=== PATIENT | female | born 1990 | race Caucasian/White ===

== ENCOUNTER 2023-03-03 14:13 | Emergency (ER) | payer OTHER ==
[2023-03-03 15:08] LABS: CORONAVIRUS COVID-19 NAA NEGATIVE (NEGATIVE); INFLUENZA A NAA NEGATIVE (NEGATIVE); INFLUENZA B NAA NEGATIVE (NEGATIVE); RESPIRATORY SYNCYTIAL VIR NAA NEGATIVE (NEGATIVE)
[2023-03-03 15:26] LABS: BASOPHILS ABSOLUTE AUTO 0.03 K/uL (0.00-0.20); BASOPHILS PERCENT AUTO 0.3 % (0.0-2.0); EOSINOPHILS ABSOLUTE AUTO 0.22 K/uL (0.00-0.50); EOSINOPHILS PERCENT AUTO 2.1 % (0.0-5.0); LYMPHOCYTES PERCENT AUTO 20.8 % (10.0-50.0); MEAN CORPUSCULAR HEMOGLOBIN 27.7 pg (28.2-33.3); MEAN CORPUSCULAR HGB CONC 33.3 g/dL (31.7-36.0); MEAN CORPUSCULAR VOLUME 83.2 fL (84.0-98.0); MONOCYTES ABSOLUTE AUTO 0.95 K/uL (0.00-1.00); NEUTROPHILS ABSOLUTE AUTO 7.16 K/uL (1.40-7.00); NEUTROPHILS PERCENT AUTO 67.8 % (45.0-80.0); PLATELET COUNT,PLT 361 K/uL (150-350); RED BLOOD CELL COUNT 4.69 M/uL (3.77-5.09); RED CELL DISTRIBUTION WIDTH 14.2 % (11.2-14.1); WHITE BLOOD CELL COUNT,WBC 10.6 K/uL (4.0-10.2)
[2023-03-03 15:54] LABS: ALANINE AMINOTRANSFERASE,ALT 17 U/L (12-78); ALBUMIN 3.5 g/dL (3.4-5.0); ALKALINE PHOSPHATASE 55 IU/L (46-116); ASPARTATE AMNIOTRANSFERASE,AST 12 U/L (15-37); BILIRUBIN TOTAL 0.8 mg/dL (0.2-1.0); BLOOD UREA NITROGEN,BUN 9 mg/dL (7-18); CALCIUM 8.7 mg/dL (8.5-10.1); CARBON DIOXIDE,CO2 21.4 mmol/L (21.0-32.0); CHLORIDE,CL 108 mmol/L (98-107); CREATININE 0.82 mg/dL (0.51-1.17); GLUCOSE RANDOM 91 mg/dL (70-99); POTASSIUM,K 4.1 mmol/L (3.5-5.1); PROTEIN TOTAL,TP 7.7 g/dL (6.4-8.2); SODIUM,NA 140 mmol/L (136-145); TSH ULTRASENSITIVE 2.599 mIU/mL (0.358-3.740)
[2023-03-03 15:58] LABS: ANION GAP 14.7 meq/L (7-15); ESTIMATED GFR 97 mL/min (>=60)
[2023-03-03] MEDS ORDERED: Take Home: Benzonatate 100 MG, 6 Cap Pack PO ONE (16:03)
== END 2023-03-03 16:15 | disposition home or self-care (01) ==
LOC: LL.ED 14:13
DX: J06.9 Acute upper respiratory infection, unspecified (principal); R05.1 Acute cough; Z88.1 Allergy status to other antibiotic agents; Z20.822 Contact with and (suspected) exposure to COVID-19
CPT/HCPCS: 0241U; 36415; 80053; 82306; 84443; 84481; 85025; 99283; A9270

== ENCOUNTER 2025-01-09 18:12 | Emergency (ER) | payer OTHER | END 2025-01-09 19:22 | disposition home or self-care (01) | LOC: LL.ED 18:12 | DX: S60.222A Contusion of left hand, initial encounter (principal); S80.11XA Contusion of right lower leg, initial encounter; F17.200 Nicotine dependence, unspecified, uncomplicated; Z88.1 Allergy status to other antibiotic agents; W23.0XXA Caught, crushed, jammed, or pinched between moving objects, initial encounter | CPT/HCPCS: 73130-LT; 99283 ==